=== PATIENT | female | born 1960 | race Caucasian/White ===

== ENCOUNTER → 2017-07-20 17:48 | Outpatient (CLI) | payer OTHER, MEDICAID, SELFPAY ==
--- NOTE | 2017-07-20 | DI.MRI.S_ITS ---
PROCEDURE: MR STROKE Pre- and post-contrast brain MRI, non-contrast brain MR angiogram, pre- and postcontrast neck MR angiogram INDICATIONS: DIZZINESS TECHNIQUE: Brain: Noncontrast axial T1 spin echo, axial T2 fast spin echo, sagittal and axial FLAIR, coronal T2 fast spin echo, axial gradient echo, axial diffusion and ADC through the brain. After the administration of contrast, axial 3D VIBE of the cranial vasculature and brain. Brain MRA: Non-contrast 3-D time of flight MR angiogram, with multiple mqqhfhv-jmhgmtkmm-rfzowippzz (MIP) reformats performed. Neck MRA: Axial and sagittal TruFISP through the neck. Coronal dynamic MR angiogram during administration of contrast in the arterial and venous phases, with 3-dimenstional uiadwht-egmyppzcu-oudsdcnedt (MIP) reformats constructed from subtraction images. COMPARISON: None. FINDINGS: Image quality: Excellent. BRAIN: CSF spaces: Ventricles are normal in size and shape. Basal cisterns are patent. No extra-axial fluid collections. Brain: No intracranial bleeds or mass effects. Mild diffuse cerebral volume loss. Molina-white matter interface is normal. Diffusion weighted images show no acute ischemic insults. Brainstem appears normal. Normal intravascular flow voids are present. No abnormal intracranial enhancement. Skull and face: Calvarial marrow signal is normal. Orbits appear normal. Sinuses: Mild mucosal thickening within the bilateral ethmoid and sphenoid sinuses. Sinuses and mastoids are otherwise clear. BRAIN MR ANGIOGRAM: Anterior circulation: Intracranial internal carotid arteries are normal in size and enhancement. The flow within the paired anterior cerebral arteries is normal and symmetric. The flow within the middle cerebral arteries is normal and symmetric. The anterior communicating artery is seen. No stenoses, occlusions, or aneurysms. Posterior circulation: The visualized portions of the vertebral arteries demonstrate normal caliber, and join to form a normal appearing basilar artery. The flow within the posterior cerebral arteries is normal and symmetric. No stenoses, occlusions, or aneurysms. NECK MR ANGIOGRAM: Carotids: Great vessels demonstrate a conventional anatomy as they arise from the aortic arch. The origins of the common carotid arteries appear patent. The calibers and courses of both common carotid arteries are normal. The bifurcation regions appear normal bilaterally. The internal carotid arteries demonstrate normal course and caliber. Posterior circulation: The origins of the vertebral arteries appear patent. More superior portions of both vertebral arteries demonstrate normal course and caliber, and join to form a normal appearing basilar artery. Miscellaneous: Subclavian arteries appear patent. Pre-contrast images through the neck show no soft tissue abnormalities. IMPRESSION: BRAIN MRI: 1. Mild diffuse cerebral volume loss. 2. No recent infarct. BRAIN MR ANGIOGRAM: Negative cerebral MR angiography. NECK MR ANGIOGRAM: 1. No internal carotid artery stenosis bilaterally. 2. Patent bilateral vertebral arteries. Dictated by: Shaylee Lopez M.D. on 07/21/2017 at 9:04 Approved by: Shaylee Lopez M.D. on 07/21/2017 at 9:06
== END ==
PROVIDERS: PCP Physician Assistant Medical; Visit Provider Specialist
DX: R42 Dizziness and giddiness (principal)
CPT/HCPCS: 70553; A9579

== ENCOUNTER 2019-01-05 15:17 | Emergency (ER) | payer OTHER, MEDICAID, SELFPAY ==
--- NOTE | 2019-01-05 15:18 | DI.RAD.S_ITS ---
PROCEDURE: XR SHOULDER LT MIN 2V INDICATIONS: fall with left shoulder pain TECHNIQUE: 3 views of the shoulder were acquired. COMPARISON: [facility], CT, CT CERVICAL SPINE WO CON, 01/05/2019, 15:49. FINDINGS: Bones: There is any poorly visualized fracture of the left humeral head. It appears to be impacted as well as mildly displaced. Humeral head is superiorly subluxed in relation to the glenohumeral joint. However, is noted these are suboptimal images secondary to patient positioning. Soft tissues: No suspicious soft tissue calcifications. IMPRESSION: 1. Suboptimal patient positioning. However, there appears to be a displaced fracture of the humeral head with superior subluxation in relation to the glenohumeral joint. It is not well characterized secondary to patient positioning. As patient can tolerate, repeat views are recommended. Dictated by: Nadine Rosa M.D. on 01/05/2019 at 16:10 Approved by: Nadine Rosa M.D. on 01/05/2019 at 16:12
--- NOTE | 2019-01-05 15:18 | DI.RAD.S_ITS ---
PROCEDURE: XR ELBOW LT 2V INDICATIONS: fall with elbow pain TECHNIQUE: 2 views of the elbow were acquired. COMPARISON: None. FINDINGS: Bones: No fractures or dislocations. No suspicious bony lesions. Suboptimal characterization of proximal radial head and olecranon secondary to patient positioning. Soft tissues: No elbow joint effusion. No suspicious soft tissue calcifications. IMPRESSION: No visualized acute fracture or dislocation. However, if clinical concern and/or pain persist, short interval imaging followup in 7-10 days is recommended, as occult injury cannot be definitively excluded. Dictated by: Nadien Rosa M.D. on 01/05/2019 at 16:12 Approved by: Nadine Rosa M.D. on 01/05/2019 at 16:12
--- NOTE | 2019-01-05 15:18 | DI.CT.S_ITS ---
PROCEDURE: CT CERVICAL SPINE WO CON INDICATIONS: fall with neck pain TECHNIQUE: Noncontrast 3 mm thick sections acquired from the skull base to the T4 level. Sagittal and coronal reformats were then constructed. For radiation dose reduction, the following was used: automated exposure control, adjustment of mA and/or kV according to patient size. COMPARISON: None. FINDINGS: Image quality: Excellent. Bones: Multilevel degenerative changes are present within the cervical spine. There is trace retrolisthesis of C5 on C6 and C6 on C7. There is a comminuted fracture with superior subluxation into the relation of the glenohumeral joint of the left humeral head. Fracture extends to the proximal humeral diaphysis. Humeral head is displaced posteriorly in relation to the humeral shaft. Visualized superior ribs are intact. Soft tissues: Prevertebral soft tissues are normal in thickness. No paravertebral hematomas. No apical pneumothoraces. IMPRESSION: 1. No cervical spine fractures. 2. Comminuted and displaced fracture of the left humeral head and proximal humerus as above. Dictated by: Nadine Rosa M.D. on 01/05/2019 at 16:12 Approved by: Nadine Rosa M.D. on 01/05/2019 at 16:17
[2019-01-05 15:25] VITALS: BP 145/96; PULSE 86; RESP 22; TEMP 36.8; O2SAT 100
[2019-01-05 15:26] VITALS: PULSE 86
--- NOTE | 2019-01-05 15:37 | PC.NURSE ---
[address] scan, notified
[2019-01-05] MEDS: fentaNYL 100 MCG/2 ML INJ 50 MCG IV (15:50)
--- NOTE | 2019-01-05 16:26 | ED_ITS ---
HPI - Extremity Injury (Upper) General Chief Complaint: Extremity Injury, Upper Stated Complaint: Fall at home Time Seen by Provider: 01/05/19 15:18 Source: patient and EMS Mode of arrival: EMS Limitations: no limitations History of Present Illness HPI narrative: 58-year-old female daily smoker with noncontributory medical history presents with a chief complaint of a mechanical fall resulting in left shoulder pain and obvious deformity. She denies any head pain did does admit to some midline neck pain. Denies any numbness, tingling or weakness. She denies other injury. She was brought by EMS and given fentanyl EN route. MD complaint: injury to: left and shoulder Other injuries: neck Handedness: right Place: home Severity: moderate Relieving factors: immobilization and medication Exacerbating factors: movement of extremity Context: fall and direct blow Associated symptoms: denies other symptoms Treatments prior to arrival: bandage, cervical collar, spinal immobilization and splint Related Data Previous Rx's Medication Instructions Recorded cyclobenzaprine 10 mg PO TID PRN #14 tab 01/05/19 hydrocodone-acetaminophen 1 tab PO Q8H PRN #30 tab 01/05/19 Allergies Allergy/AdvReac Type Severity Reaction Status Date / Time codeine Allergy Verified 01/05/19 15:59 Sulfa (Sulfonamide Allergy Verified 01/05/19 15:59 Antibiotics) Review of Systems Constitutional Constitutional: Denies chills, Denies fatigue, Denies fever(s), Denies frequent falls, Denies lethargy and Denies weakness Eyes Eyes: Denies change in vision, Denies eye discharge, Denies irritation and Denies loss of vision ENT Ears, Nose, Mouth, and Throat: Denies change in voice, Denies dizziness, Reports neck pain, Denies sore throat and Denies throat swelling Cardiovascular Cardiovascular: Denies chest pain, Denies irregular heart rhythm, Denies lightheadedness, Denies palpitations, Denies dyspnea, Denies dyspnea on exertion and Denies orthopnea Respiratory Respiratory: Denies cough, Denies dyspnea, Denies dyspnea on exertion and Denies wheezing Gastrointestinal Gastrointestinal: Denies abdominal pain, Denies change in bowel habits, Denies diarrhea, Denies nausea and Denies vomiting Genitourinary Genitourinary: Denies hematuria, Denies flank pain, Denies urinary incontinence and Denies urinary urgency Musculoskeletal Musculoskeletal: Denies back pain, Reports joint swelling, Reports limited range of motion, Denies muscle weakness, Reports neck pain, Denies numbness and Denies tingling Integumentary/Breasts Skin/Breast: Denies pruritus, Denies erythema, Denies rash and Denies wounds Neurologic Neurologic: Denies behavioral changes, Denies confusion, Denies dizziness, Denies frequent falls, Denies loss of vision, Denies numbness, Denies tingling and Denies weakness Psychiatric Psychiatric: Denies anxiety, Denies behavioral changes, Denies confusion, Denies depression, Denies homicidal ideation and Denies suicidal ideation Endocrine Endocrine: Denies fatigue, Denies flushing and Denies palpitations Hematologic/Lymphatic Hematologic/Lymphatic: Denies easy bruising Allergic/Immunologic Allergic/Immunologic: Denies urticaria, Denies throat swelling and Denies wheezing Patient History Social History Smoking Status: Current every day smoker Exam Narrative Exam Narrative: GENERAL: [58] year old patient appears stated age. Well- nourished, well-developed patient, in mild distress. HEAD: Atraumatic. Normocephalic. EYES: Pupils equal round and reactive. Extraocular motions intact. No scleral ic terus. No injection or drainage. ENT: Nose without bleeding, purulent drainage. Throat without erythema, tonsillar hypertrophy or exudate. Airway patent. NECK: Trachea midline. Midline tenderness to palpation no crepitance or step- offs CARDIOVASCULAR: Regular rate and rhythm without murmurs, gallops, or rubs. RESPIRATORY: Clear to auscultation. Breath sounds equal bilaterally. No wheezes, rales, or rhonchi. GASTROINTESTINAL: Abdomen soft, non-tender, nondistended. EXTREMITIES: Decreased range of motion secondary to pain and mechanical obstruction of left shoulder with obvious deformity. This is closed, isolated and neurovascularly intact BACK: Nontender without deformity or crepitance. No flank tenderness. NEURO: AOx3. SKIN: No rash or erythema of visible areas Initial Vital Signs Initial Vital Signs: Vital Signs Temperature 98.2 F 01/05/19 15:25 Pulse Rate 86 01/05/19 15:25 Respiratory Rate 22 01/05/19 15:25 Blood Pressure 145/96 H 01/05/19 15:25 Pulse Oximetry 100 01/05/19 15:25 Procedures Orthopedic Splinting/Casting Injury #1: Side: left Upper Extremity Injury Location: shoulder Upper Extremity Immobilizer: sling/shoulder immobilizer Post splinting neuro exam: intact Post splinting vascular exam: intact Placed by: Nursing Course Orders Ordered: ED Orders 01/05/19 15:18 CT cervical spine wo con Stat XR elbow LT 2V Stat XR shoulder LT min 2V Stat 01/05/19 16:49 XR shoulder LT min 2V Stat Discontinued Medications Fentanyl (Sublimaze) 50 mcg IV NOW ONE Stop: 01/05/19 15:50 Last Admin: 01/05/19 15:50 Dose: 50 mcg Documented by: JESSE Midazolam HCl (Versed) 2 mg IV NOW ONE Stop: 01/05/19 16:34 Last Admin: 01/05/19 16:39 Dose: 2 mg Documented by: JESSE Consultations Consultation #1: discussion with orthopedics (recommend some subtle traction with repeat Xray) Vital Signs Vital signs: Vital Signs - 8 hr 01/05/19 15:25 01/05/19 15:26 01/05/19 16:45 Temperature 98.2 F Pulse Rate 86 71 Pulse Rate [Left Radial] 86 Respiratory Rate 22 14 Blood Pressure 145/96 H Blood Pressure [Right Arm] 151/87 H Pulse Oximetry 100 98 01/05/19 18:00 Temperature Pulse Rate 81 Pulse Rate [Left Radial] Respiratory Rate 20 Blood Pressure Blood Pressure [Right Arm] 153/96 H Pulse Oximetry 100 MDM - Extremity Injury (Upper) Imaging Data Cervical CT: Radiologist's impression: Chart Viewer Diagnostics DATE TYPE STATUS AUTHOR Hx 01/05/19 16:49 Jerman Lomeli 01/05/19 15:18 Nadine Rosa 01/05/19 15:18 Nadine Rosa 01/05/19 15:18 Nadine Rosa 07/20/17 00:00 Shaylee Lopez [place] 58, F1960 REG ER, [facility] ED R13 54.431kg Extremity Injury, Upper Search Chart No Data to Display ONSET Today 16:45 Little Bustamante 58 F [address] [address] [address] Scan Report Signed Patient: Little BustamanteMR#: [id number] : 1960Acct:[id number] Age/Sex: 58 / FDate of Service: 01/05/19 Loc: ED Accession Number: [id number] Procedure: CT cervical spine wo con Ordering Provider: Naeem Llamas D.O. PROCEDURE: CT CERVICAL SPINE WO CON INDICATIONS: fall with neck pain TECHNIQUE: Noncontrast 3 mm thick sections acquired from the skull base to the T4 level. Sagittal and coronal reformats were then constructed. For radiation dose reduction, the following was used: automated exposure control, adjustment of mA and/or kV according to patient size. COMPARISON: None. FINDINGS: Image quality: Excellent. Bones: Multilevel degenerative changes are present within the cervical spine. There is trace retrolisthesis of C5 on C6 and C6 on C7. There is a comminuted fracture with superior subluxation into the relation of the glenohumeral joint of the left humeral head. Fracture extends to the proximal humeral diaphysis. Humeral head is displaced posteriorly in relation to the humeral shaft. Visualized superior ribs are intact. Soft tissues: Prevertebral soft tissues are normal in thickness. No paravertebral hematomas. No apical pneumothoraces. IMPRESSION: 1. No cervical spine fractures. 2. Comminuted and displaced fracture of the left humeral head and proximal humerus as above. Dictated by: Nadine Rosa M.D. on 01/05/2019 at 16:12 Approved by: Nadine Rosa M.D. on 01/05/2019 at 16:17 Elbow Xray: Radiologist's impression: [place] [address] XRay Report Signed Patient: Jas Bustamante#: [id number] : 1960Acct:[id number] Age/Sex: 58 / FDate of Service: 01/05/19 Loc: ED Accession Number: [id number] Procedure: XR elbow LT 2V Ordering Provider: Naeem Llamas D.O. PROCEDURE: XR ELBOW LT 2V INDICATIONS: fall with elbow pain TECHNIQUE: 2 views of the elbow were acquired. COMPARISON: None. FINDINGS: Bones: No fractures or dislocations. No suspicious bony lesions. Suboptimal characterization of proximal radial head and olecranon secondary to patient positioning. Soft tissues: No elbow joint effusion. No suspicious soft tissue calcifications. IMPRESSION: No visualized acute fracture or dislocation. However, if clinical concern and/or pain persist, short interval imaging followup in 7-10 days is recommended, as occult injury cannot be definitively excluded. Dictated by: Nadine Rosa M.D. on 01/05/2019 at 16:12 Approved by: Nadine Rosa M.D. on 01/05/2019 at 16:12 Shoulder Xray: Radiologist's impression: [address] [address] XRay Report Signed Patient: Little BustamanteMR#: [id number] : 1960Acct:[id number] Age/Sex: 58 / FDate of Service: 01/05/19 Loc: ED Accession Number: [id number] Procedure: XR shoulder LT min 2V Ordering Provider: Naeem Llamas D.O. PROCEDURE: XR SHOULDER LT MIN 2V INDICATIONS: fall with left shoulder pain TECHNIQUE: 3 views of the shoulder were acquired. COMPARISON: [facility], CT, CT CERVICAL SPINE WO CON, 01/05/2019, 15:49. FINDINGS: Bones: There is any poorly visualized fracture of the left humeral head. It appears to be impacted as well as mildly displaced. Humeral head is superiorly subluxed in relation to the glenohumeral joint. However, is noted these are suboptimal images secondary to patient positioning. Soft tissues: No suspicious soft tissue calcifications. IMPRESSION: 1. Suboptimal patient positioning. However, there appears to be a displaced fracture of the humeral head with superior subluxation in relation to the glenohumeral joint. It is not well characterized secondary to patient positioning. As patient can tolerate, repeat views are recommended. Dictated by: Nadine Rosa M.D. on 01/05/2019 at 16:10 Approved by: Nadine Rosa M.D. on 01/05/2019 at 16:12 Little Bustamante 58 F [address] [address] XRay Report Signed Patient: Jas Bustamante#: [id number] : 1960Acct:[id number] Age/Sex: 58 / FDate of Service: 01/05/19 Loc: ED Accession Number: [id number] Procedure: XR shoulder LT min 2V Ordering Provider: Naeem Llamas D.O. PROCEDURE: XR SHOULDER LT MIN 2V INDICATIONS: s/p reduction TECHNIQUE: 3 views of the shoulder were acquired. COMPARISON: [facility], CT, CT CERVICAL SPINE WO CON, 01/05/2019, 15:49. [facility], CR, XR ELBOW LT 2V, 01/05/2019, 15:29. [facility], CR, XR SHOULDER LT MIN 2V, 01/05/2019, 15:29. FINDINGS: Bones: There is a comminuted, impacted left humeral head and neck fracture seen. On this post reduction study, the fracture fragments appear slightly better aligned. There is no glenohumeral dislocation seen. The visualized ribs are unremarkable. No suspicious lytic or blastic lesions are seen. Soft tissues: Atherosclerotic calcification of the aortic arch is noted. The visualized lung demonstrates an unremarkable appearance. IMPRESSION: Slightly better alignment of this patient's impacted comminuted left humeral head and neck fracture on these post reduction images. Dictated by: Jerman Lomeli M.D. on 01/05/2019 at 16:18 Approved by: Jerman Lomeli M.D. on 01/05/2019 at 16:20 Discharge Plan Departure Patient Disposition: Home Clinical Impression: Fracture of humerus Qualifiers: Encounter type: initial encounter Humerus Location: proximal Fracture type: closed Fracture alignment: displaced Laterality: left Discharge Date/Time: 01/05/19 19:03 Instructions: DI for Shoulder Fracture Activity Restrictions/Additional Instructions: *You have been diagnosed with [left proximal humerus fracture] *What to do: *Take medications as directed *Follow up with your schedule [facility] in 2-3 days, call for an appointment. Let them know you were seen in the Emergency Department and that we ask that you be seen in follow up *Return to ER if you should have any new, worsening or concerning symptoms, such as [increasing pain, numbness, tingling, weakness or other bothersome symptoms You have been prescribed narcotic medications. While on these medications you cannot drive or operate heavy machinery. Additionally you cannot sign legal documents or perform any duties such as this. Many people get constipated on narcotic medications so it would be advisable to discuss stool softeners with the pharmacist when you picker / packer your prescription. Please understand that we cannot provide further refills of narcotics or controlled substances through the ED and your pain management will need to be through your Primary Care Provider] Prescriptions: New hydrocodone-acetaminophen 5-325 mg tablet 1 tab PO Q8H PRN (Reason: pain) Qty: 30 RF: 0 cyclobenzaprine 10 mg tablet 10 mg PO TID PRN (Reason: muscle spasm) Qty: 14 RF: 0 Referrals: Haresh Ndiaye MD [Physician] -
[2019-01-05] MEDS: MIDAZOLAM 2 MG/2 ML VIAL IV (16:39)
[2019-01-05 16:45] VITALS: BP 151/87; PULSE 71; RESP 14; O2SAT 98
--- NOTE | 2019-01-05 16:49 | DI.RAD.S_ITS ---
PROCEDURE: XR SHOULDER LT MIN 2V INDICATIONS: s/p reduction TECHNIQUE: 3 views of the shoulder were acquired. COMPARISON: [facility], CT, CT CERVICAL SPINE WO CON, 01/05/2019, 15:49. [facility], CR, XR ELBOW LT 2V, 01/05/2019, 15:29. [facility], CR, XR SHOULDER LT MIN 2V, 01/05/2019, 15:29. FINDINGS: Bones: There is a comminuted, impacted left humeral head and neck fracture seen. On this post reduction study, the fracture fragments appear slightly better aligned. There is no glenohumeral dislocation seen. The visualized ribs are unremarkable. No suspicious lytic or blastic lesions are seen. Soft tissues: Atherosclerotic calcification of the aortic arch is noted. The visualized lung demonstrates an unremarkable appearance. IMPRESSION: Slightly better alignment of this patient's impacted comminuted left humeral head and neck fracture on these post reduction images. Dictated by: Jerman Lomeli M.D. on 01/05/2019 at 16:18 Approved by: Jerman Lomeli M.D. on 01/05/2019 at 16:20
[2019-01-05 18:00] VITALS: BP 153/96; PULSE 81; RESP 20; O2SAT 100
== END 2019-01-05 19:03 | disposition home or self-care (01) ==
PROVIDERS: Emergency Provider Emergency Medicine
DX: S42.292A Other displaced fracture of upper end of left humerus, initial encounter for closed fracture (principal); W19.XXXA Unspecified fall, initial encounter
CPT/HCPCS: 72125; 73030; 73070; 96374; 96375; 99283; 99284; J2250; J3010

== ENCOUNTER → 2022-03-03 10:48 | Outpatient (CLI) | payer OTHER, SELFPAY ==
[2022-03-03 12:39] LABS: COVID19 -Nasal RAPID Negative (Negative)
== END ==
PROVIDERS: Referring Provider Orthopaedic Surgery; Visit Provider Orthopaedic Surgery
DX: Z20.822 Contact with and (suspected) exposure to COVID-19 (principal)
CPT/HCPCS: 87635; C9803

== ENCOUNTER 2022-03-04 14:04 | Day surgery (SDC) | payer OTHER, SELFPAY ==
[2022-03-02 14:42] VITALS: BMI 16.7
[2022-03-04] VITALS (11 sets, daily range): BP systolic 167–195; BP diastolic 93–117; PULSE 89–100; RESP 11–22; TEMP 36.1–37; O2SAT 93–100; BMI 16.7
--- NOTE | 2022-03-04 14:36 | PM.PREOP ---
Pre-operative Note Interval Note History & Physical reviewed/Exam performed by Physician: Yes Changes to H&P: No
[2022-03-04] MEDS: LACTATED RINGERS 1,000 ML 84 ML IV (14:48)
[2022-03-04] MEDS: CEFAZOLIN 2 GM/100 ML PREMIX 100 ML IV (14:50)
--- NOTE | 2022-03-04 15:23 | SUR.OPER ---
Supine on padded OR bed, head on pillow, arms secured on padded arm boards at <90 degrees abduction, legs uncrossed, safety belt at thigh, tape over blanket over lower legs.
[2022-03-04] MEDS: BUPIVACAINE 0.5% W/ EPI (PF) 30 ML VIAL INJ (15:48)
--- NOTE | 2022-03-04 16:14 | P.OP_ITS ---
Operative Date/Time/Diagnoses Date of procedure: 03/04/22 Time of procedure: 16:14 Pre-op diagnosis: Left patella fracture Post-op diagnosis: same Procedure & Clinicians Procedure: Operative fixation left patella fracture Same procedure as scheduled: Yes Indications: This is a 61-year-old female who sustained a ground level fall 3 weeks ago sustaining a left complex patella fracture. She did not have any some. In order to restore extension we discussed that she would be indicated for operative fixation of her patella. The risks and benefits of the procedure were described including the risks of infection, damage to internal structures, bleeding, revision surgery, failure of surgery. No guarantees were made regarding outcomes. She expressed understanding with plan and wished to go forward with surgery. Consent was signed preoperative area. Surgeon: Bryce Simon Dairy Scientist: Price Paredes Anesthesia Type: General Operative Notes Findings: Three-part patellar fracture as seen under direct visualization and fluoroscopy Closure Type: primary Specimen(s): none sent Prosthetic devices, grafts, tissues, transplants, or devices: 6.5 cannulated Arthrex screws x2 with Arthrex SutureTape Estimated Blood Loss (mL): 5 Blood products transfused: none Tourniquet time (min): 45 Procedure in detail: Patient was seen in the preoperative holding area. Her left lower extremity was marked with my initials. We again went over the risks and benefits of the procedure and she wished to go forward with the surgery. She signed her consent. She was then brought back to the operating room and placed supine on the operating table. A tourniquet was applied to the upper thigh. She was given 2 g of Ancef. Standard sterile prep was performed. A time-out was then performed and my initials were again confirmed on the left lower extremity. The tourniquet was inflated to 250 mmHg. I began with a direct midline incision over the patella including the patellar tendon and part of the quad tendon. Incision was taken down to the retinaculum and the patella itself. Fracture was encountered. This was a 3 part fracture in a ?Tracy sign?. There is also a transverse tear in the retinaculum. Pointed reduction clamps were used to reduce the fracture and this was confirmed on fluoroscopy. K-wires were placed from distal to proximal. Lengths were measured and 2 separate 6.5 mm Arthrex screws were placed. Lastly, fiber tape was pulled through the screws and tied in a [id number] pattern over the patella. The retinaculum was closed with Ethibond suture. The skin was closed with 2-0 PDS and 4-0 Monocryl, Dermabond and an Aquacel dressing. Assisting participation: This operation could not have been safely performed (without compromising the technical results or length of the procedure) without the assistance of a skilled surgical specialist. The surgical specialist was medically necessary for proper positioning, retraction and manipulation of instruments, proper exposure, graft prep, and manipulation of tissue. Complications: none Post-operative Condition: stable Disposition: PACU Plan for aftercare: Postoperatively, she will be in a knee immobilizer for 6 weeks. I will have her nonweightbearing for the next 2 weeks after which she can be weight-bearing as long as she is wearing her knee immobilizer and using crutches. We will then transition her to a hinged knee brace and allow her to start mobilizing. Okay for dressings to come off in 3 days in order to shower. Let warm soap and water run over the incisions. Pat dry and ensure that the incision is completely dry before placing new clean dressings. If there are Steri-Strips, ensure that it is dry underneath. If water gets under the Steri-Strips, remove them. Keep the new dressings on for 2 more days. At postoperative day 5, remove all dressings and shower daily and let air dry.
[2022-03-04] MEDS: fentaNYL 100 MCG/2 ML INJ IV ×2 (16:38→16:44)
--- NOTE | 2022-03-04 16:53 | DI.RAD.S_ITS ---
PROCEDURE: XR KNEE LT 1TO2V INDICATIONS: PATELLA FX REPAIR TECHNIQUE: Two intraoperative fluoroscopic spot views of the knee were acquired. COMPARISON: [facility] Outside Film, CR, XR KNEE 4+ VIEWS LEFT, 02/10/2022, 16:07. FINDINGS: Bones: Two patellar screws oriented caudal cranial are in position. There is near anatomic alignment of the patellar fracture fragments. Soft tissues: Expected intra-articular gas and soft tissue swelling. IMPRESSION: 1. Expected intraoperative appearance post patellar fracture fixation. Dictated by: Makayla Redd M.D. on 03/05/2022 at 9:06 Approved by: Makayla Redd M.D. on 03/05/2022 at 9:07
[2022-03-04] MEDS: OXYCODONE/ACETAMINOPHEN 5/325 TABLET 1 TAB PO ×2 (16:55→17:33)
[2022-03-04] MEDS: ACETAMINOPHEN IV 1,000 MG/100 ML VIAL 400 MG IV (17:08)
[2022-03-04] MEDS: LACTATED RINGERS 1,000 ML 42 ML IV (17:33)
[2022-03-04] MEDS: ONDANSETRON 4 MG/2 ML INJ IV (17:33)
[2022-03-04] MEDS: HYDROMORPHONE 2 MG INJ IV (17:34)
--- NOTE | 2022-03-04 17:51 | SUR.PHASEI ---
Patient's blood pressure remains consistently elevated at 191/114; 187/115; HR 89. Patient is in no distress; denies headache, nausea or blurred vision. Patient states that she lost her blood pressure pills and has been off of them for about 6 months, but recently found her pills again. Stressed to patient the importance of taking her blood pressure medication daily as directed. V/U. Per previous RnKeon, anesthesia was notified of hypertension but did not leave any orders or feel it necessary to treat here in the PACU.
== END 2022-03-04 18:19 | disposition home or self-care (01) ==
PROVIDERS: PCP Nurse Practitioner Family; Referring Provider Orthopaedic Surgery; Visit Provider Orthopaedic Surgery
PROC: (CPT 27524; principal; 2022-03-04 15:15)
DX: S82.032A Displaced transverse fracture of left patella, initial encounter for closed fracture (principal); W19.XXXA Unspecified fall, initial encounter
CPT/HCPCS: 27524; 73560; 76000; J0131; J0690; J1100; J1170; J2250; J2405; J2704; J3010